=== PATIENT | male | born 1995 | race Caucasian/White ===

== ENCOUNTER 2018-02-03 23:44 | Inpatient (IN) | payer OTHER ==
[~2018-02-03] VITALS: Ht 175.3 cm; Wt 74.9 kg
[2018-02-03 23:48] VITALS: BP 128/65
[2018-02-04] VITALS (7 sets, daily range): BP systolic 100–130; BP diastolic 7–80
[2018-02-04 00:21] LABS: BASO % 0.2 % (0.0-1.0); EOS # 0.2 10*3/uL (0.0-0.4); EOS % 1.2 % (1.0-4.0); HEMATOCRIT 42.8 % (42.0-52.0); HEMOGLOBIN 14.2 g/dl (14.0-18.0); LYMPH # 1.4 10*3/uL (1.3-4.4); LYMPH % 11.7 % (27.0-41.0); MEAN CORPUSCULAR HGB 30.9 pg (27.0-31.0); MEAN CORPUSCULAR HGB CONC 33.2 g/dl (33.0-37.0); MEAN PLATELET VOLUME 9.4 fl (9.6-12.3); MONO # 1.2 10*3/uL (0.1-1.0); NEUT # 9.4 10*3/uL (2.3-7.9); NEUT % 76.5 % (47.0-73.0); PLATELET COUNT AUTOMATED 214 10*3/uL (130-400); RED CELL DISTRI WIDTH 11.9 % (0-14.5); WHITE BLOOD COUNT 12.3 10*3/uL (4.8-10.8)
[2018-02-04 00:35] LABS: ALBUMIN 4.2 gm/dl (3.1-4.5); CREATININE 2.21 mg/dL (0.70-1.30); POTASSIUM 3.7 mmol/L (3.5-5.1); TOTAL PROTEIN 7.4 gm/dL (6.4-8.2)
[2018-02-04 00:40] LABS: BILIRUBIN NEGATIVE (NEGATIVE); BLOOD NEGATIVE (NEGATIVE); CLARITY CLEAR (CLEAR); COLOR YELLOW (YELLOW); GLUCOSE NEGATIVE (NEGATIVE); KETONE NEGATIVE (NEGATIVE); LEUKO ESTERASE TRACE (NEGATIVE); NITRITE NEGATIVE (NEGATIVE); SPECIFIC GRAVITY <= 1.005 (1.005-1.030); UROBILINOGEN 0.2 E.U./dl (0.2-1.0)
[2018-02-04] MEDS ORDERED: ZOLOFT50 MG PO (03:51)
[2018-02-04 07:36] LABS: BASO % 0.3 % (0.0-1.0); EOS # 0.2 10*3/uL (0.0-0.4); EOS % 1.7 % (1.0-4.0); HEMATOCRIT 38.2 % (42.0-52.0); HEMOGLOBIN 12.8 g/dl (14.0-18.0); LYMPH # 1.9 10*3/uL (1.3-4.4); LYMPH % 18.8 % (27.0-41.0); MEAN CELL VOLUME 94.1 fl (80.0-94.0); MEAN CORPUSCULAR HGB 31.5 pg (27.0-31.0); MEAN CORPUSCULAR HGB CONC 33.5 g/dl (33.0-37.0); MEAN PLATELET VOLUME 9.5 fl (9.6-12.3); MONO % 9.8 % (3.0-9.0); NEUT # 6.9 10*3/uL (2.3-7.9); PLATELET COUNT AUTOMATED 183 10*3/uL (130-400); RED BLOOD COUNT 4.06 10*6/uL (4.50-5.90); RED CELL DISTRI WIDTH 11.9 % (0-14.5); WHITE BLOOD COUNT 9.9 10*3/uL (4.8-10.8)
[2018-02-04 07:47] LABS: ALBUMIN 3.4 gm/dl (3.1-4.5); CREATININE 1.74 mg/dL (0.70-1.30); PHOSPHOROUS 3.5 mg/dL (2.5-4.9); POTASSIUM 3.8 mmol/L (3.5-5.1)
[2018-02-05] VITALS: BP 109/56
[2018-02-05 06:30] LABS: BASO % 0.3 % (0.0-1.0); EOS # 0.2 10*3/uL (0.0-0.4); EOS % 2.8 % (1.0-4.0); HEMATOCRIT 36.5 % (42.0-52.0); LYMPH # 1.4 10*3/uL (1.3-4.4); LYMPH % 22.4 % (27.0-41.0); MEAN CELL VOLUME 94.8 fl (80.0-94.0); MEAN CORPUSCULAR HGB 31.2 pg (27.0-31.0); MEAN CORPUSCULAR HGB CONC 32.9 g/dl (33.0-37.0); MEAN PLATELET VOLUME 9.8 fl (9.6-12.3); MONO # 0.5 10*3/uL (0.1-1.0); MONO % 8.2 % (3.0-9.0); NEUT % 66.1 % (47.0-73.0); PLATELET COUNT AUTOMATED 168 10*3/uL (130-400); RED BLOOD COUNT 3.85 10*6/uL (4.50-5.90); RED CELL DISTRI WIDTH 11.9 % (0-14.5); WHITE BLOOD COUNT 6.1 10*3/uL (4.8-10.8)
[2018-02-05 07:01] LABS: ACT PARTIAL THROMBO TIME 25.5 SECONDS (20.8-31.5); ALBUMIN 3.3 gm/dl (3.1-4.5); CHLORIDE 113 mmol/L (98-107); CREATININE 1.21 mg/dL (0.70-1.30); PHOSPHOROUS 2.7 mg/dL (2.5-4.9); POTASSIUM 4.1 mmol/L (3.5-5.1); SGOT/AST 11 IU/L (3-35); SGPT/ALT 18 U/L (12-78); SODIUM 148 mmol/L (136-145); TOTAL PROTEIN 6.1 gm/dL (6.4-8.2); TRIGLYCERIDES 109 mg/dl (<150); VLDL CHOLESTEROL 22 mg/dL (6-40)
[2018-02-05 07:08] LABS: ALKALINE PHOSPHATASE 59 U/L (45-117); BUN 13 mg/dl (7-24); FREE T4 0.98 ng/dl (0.76-1.46); THYROID STIM HORMONE (HS) 0.326 uIU/ml (0.358-4.75)
[2018-02-05 07:10] LABS: CHOLESTEROL 126 mg/dL (<200); HDL CHOLESTEROL 42 mg/dl (40-60); LDL CHOLESTEROL 62 mg/dL (9-159)
[2018-02-05 07:55] LABS: VITAMIN D, 25-HYDROXY 25.7 ng/mL (30-100)
[2018-02-05 08:00] VITALS: BP 121/65
[2018-02-05 12:00] VITALS: BP 104/56
[2018-02-05] MEDS ORDERED: CIPRO500 MG PO (13:13)
[2018-02-05] MEDS ORDERED: FLAGYL500 MG PO (13:13)
[2018-02-05] MEDS ORDERED: VITAMIN D31000 UNI1 PO (13:15)
== END 2018-02-05 15:14 | disposition home or self-care (01) | DRG 388 ==
LOC: ED 23:44 → EDHOLD 02-04 02:06 → 5E 02-04 02:06
PROVIDERS: Family Medicine; Internal Medicine; Nurse Practitioner Family
DX: K56.7 Ileus, unspecified (principal); N17.0 Acute kidney failure with tubular necrosis; K52.9 Noninfective gastroenteritis and colitis, unspecified; E86.0 Dehydration; R59.0 Localized enlarged lymph nodes; M54.5 Low back pain; F41.9 Anxiety disorder, unspecified; Z81.8 Family history of other mental and behavioral disorders; Z88.1 Allergy status to other antibiotic agents; Z88.8 Allergy status to other drugs, medicaments and biological substances

== ENCOUNTER 2019-03-18 20:24 | Emergency (ER) | payer OTHER, BC ==
[~2019-03-18] VITALS: Ht 175.2 cm; Wt 74.8 kg
[~2019-03-18 20:24] MED LIST: CIPRO500 MG PO; FLAGYL500 MG PO; VITAMIN D31000 UNI1 PO; ZOLOFT50 MG PO
== END 2019-03-18 23:41 | disposition left against medical advice (07) ==
LOC: ED 20:24
DX: S51.011A Laceration without foreign body of right elbow, initial encounter (principal); S40.212A Abrasion of left shoulder, initial encounter; S40.211A Abrasion of right shoulder, initial encounter; Z88.1 Allergy status to other antibiotic agents; Z88.8 Allergy status to other drugs, medicaments and biological substances; Z79.899 Other long term (current) drug therapy; V20.4XXA Motorcycle driver injured in collision with pedestrian or animal in traffic accident, initial encounter; Y93.55 Activity, bike riding; Y92.488 Other paved roadways as the place of occurrence of the external cause; Y99.8 Other external cause status